=== PATIENT | female | born 1975 | race Caucasian/White ===

== ENCOUNTER → 2024-01-27 01:00 | Outpatient (CLI) | payer BC, SELFPAY ==
--- NOTE | 2024-01-27 08:05 | DI.RAD_ITS ---
Exam(s) XR SHOULDER LT COMPLETE 2+V EXAM: XR SHOULDER LT COMPLETE 2+V CLINICAL HISTORY: LT SHOULDER PAIN, M25.512. TECHNIQUE: 2D digital imaging was performed of the left shoulder. Six images were obtained. AP, Gr ashey, Y-view and axillary views were obtained. COMPARISON: No exams were available for comparison FINDINGS: BONES: No acute fracture is present. No bony destructive lesion is seen. JOINTS: No dislocation present. There are mild degenerative changes seen at the acromioclavicular homero nt. The glenohumeral joint is well maintained. SOFT TISSUE: The visualized lung webb are clear. IMPRESSION: Mild degenerative changes of the AC joint. DATA REPOSITORY: RADIATION DOSE DELIVERED:
== END ==
PROVIDERS: PCP Nurse Practitioner; Visit Provider Nurse Practitioner
DX: M25.512 Pain in left shoulder (principal); M19.012 Primary osteoarthritis, left shoulder
CPT/HCPCS: 73030

== ENCOUNTER → 2024-03-27 00:26 | Outpatient (CLI) | payer BC, SELFPAY ==
--- NOTE | 2024-03-27 06:30 | DI.MRI_ITS ---
Exam(s) MR UPPER JOINT LT WO EXAM: MR UPPER JOINT LT WO CLINICAL HISTORY: ? SLAP TEAR,adhesive capsulitis,m75.02,s43.439a. TECHNIQUE: Multiplanar multisequence MRI was performed. COMPARISON: CR XR SHOULDER LT COMPLETE 2+V from 01/27/2024 FINDINGS: BONES: There is no fracture or contusion pattern. JOINTS: Very mild degenerative changes are seen at the acromioclavicular joint. The glenohumeral homero nt is normal. No significant joint effusion is seen. TENDONS: Supraspinatus: There is intermediate signal and thickening of the supraspinatus tendon consistent wit h tendinosis. There is a focus of hyperintense signal seen in the supraspinatus tendon at its insert ion site (image 11 on the T2 fat suppressed coronal images). This may represent a small intrasubstan ce tear. Infraspinatus: Unremarkable. Subscapularis: Unremarkable. Teres Minor: Unremarkable. Biceps and [place]: Unremarkable. MUSCLES: Unremarkable. GLENOID LABRUM: There is mild blunting of the labrum posteriorly (image 13 on the T2 fat-suppressed c oronal images). This may represent a degeneration or tear. SOFT TISSUES: Unremarkable. LIGAMENTS: Unremarkable. OTHER: Subacromial and subdeltoid bursae are unremarkable. IMPRESSION: 1. Tendinosis of the supraspinatus tendon. Focus of hyperintense signal which may represent intrasub stance small tear. 2. Blunting of the labrum posteriorly which may represent degeneration or tear. 3. Mild degenerative changes seen at the acromioclavicular joint. DATA REPOSITORY:
== END ==
PROVIDERS: PCP Nurse Practitioner; Visit Provider Student in an Organized Health Care Education/Training Program
DX: M75.02 Adhesive capsulitis of left shoulder (principal)
CPT/HCPCS: 73221

== ENCOUNTER 2024-05-17 11:57 | Day surgery (SDC) | payer BC, SELFPAY ==
[2024-05-17] VITALS (30 sets, daily range): BP systolic 121–181; BP diastolic 63–129; PULSE 69–99; RESP 14–26; TEMP 36–37.2; O2SAT 93–100; BMI 34.4
--- NOTE | 2024-05-17 07:27 | PDOC.DSDIS_ITS ---
Date of service: 05/17/24 Time of Service: 16:00 Discharge Plan Disposition Patient Disposition: Home Condition: Stable Discharge Details Attending Provider: Jc Rosario Primary Care Provider: GEORGE CASTILLO Home Meds and New Rx's Prescriptions: New naproxen 250 mg tablet 250 - 500 mg PO BID PRN (Reason: Moderate pain) Qty: 40 0RF tramadol 50 mg tablet 50 mg PO Q8H PRN (Reason: severe pain (scale score 7-10)) Qty: 18 0RF Continued estradiol [Estrace] 1 mg tablet 1 mg PO DAILY Rx Instructions: off 1 week; repeat cycle loratadine [Claritin] 10 mg tablet 10 mg PO DAILY PRN Discharge Instructions Additional Instructions: Surgery: Left shoulder manipulation under anesthesia Activity: Encourage increasing range of motion. Perform daily stretching exercises. Resume physical therapy tomorrow. Prescriptions: Naproxen 250 mg take 1-2 every 12 hours with a meal as needed for moderate pain Tramadol 50 mg take 1 every 8 hours as needed for severe pain You may use [id number]-atugtth Tylenol (acetaminophen) as needed for mild pain. These pain medications may be taken all at once or in different combinations as needed. Also, recommend Colace (docusate) as a stool softener as surgery and pain medicine cause constipation. You may try [id number]-[id number] diphenhydramine (Benadryl) 25-50 mg nightly as a sleep aid Dressings: None Follow-up: 10-[address] Rosario You may take off the leg compression stockings this evening at home. You may also leave them on a few days longer if you have a history of leg swelling or edema. Let us know right away if you develop any redness, drainage, fevers, chest pain, or trouble breathing. Do not drink alcohol or drive for at least 24 hours after anesthesia. Please call the office during business hours with any questions or concerns. Referrals: Jc Rosario MD [ [facility] STAFF PHYSICIAN] - 06/05/24 2:00 pm Discharge Orders Discharge Orders: Discharge Order (Routine); Ordered 05/17/24 Ordered By: Todd Salmon DS: Diagnosis Discharge Diagnosis (1) Adhesive capsulitis of left shoulder: Status: Acute
--- NOTE | 2024-05-17 12:46 | ANES.PREOP_ITS ---
General Info Date of Service Date Performed: 05/17/24 Height: 5 ft 2 in Weight: 85.3 kg Body Mass Index (BMI): 34.4 Surgical Procedure: Operation Date: 05/17/24 14:40 Proposed Procedure Side Surgeon p Shoulder Manipulation Left Jc Rosario MD Meds Allergies and Home Medications Allergies Allergy/AdvReac Type Severity Reaction Status Date / Time Sulfa (Sulfonamide Allergy Intermediate Total body Verified 05/16/24 09:16 Antibiotics) hives acetaminophen (From Percocet) AdvReac Mild Hives Verified 05/16/24 09:16 oxycodone (From Percocet) AdvReac Mild Hives Verified 05/16/24 09:16 Environmental Allergies Allergy Intermediate Stuffy Uncoded 05/16/24 09:16 nose, watery itchy eyes Home Medication ?Medication ?Instructions ?Recorded estradiol 1 mg tablet (Estrace) 1 mg PO DAILY 02/08/24 loratadine 10 mg tablet (Claritin) 10 mg PO DAILY PRN 02/08/24 Current Visit Medications: Current Medications Generic Name Dose Route Start Last Admin Trade Name Freq PRN Reason Stop Dose Admin Ringer's Solution 1,000 mls @ 30 mls/hr 05/17/24 06:00 IV 05/17/24 23:59 INFUSION [facility] IV Miscellaneous Supplies 1 each 05/17/24 06:00 Iv Access IV 05/17/24 23:59 DIRECTED MARY BETH Oxycodone HCl 0 mg 05/17/24 07:26 Oxycodone 5 Mg Tab PO 06/16/24 07:25 Q3H PRN PRN Pain Sodium Chloride 0 ml 05/17/24 06:00 Normal Saline Flush 10 Ml Syr IV 05/17/24 23:59 PRN PRN Sodium Chloride 0 ml 05/17/24 06:00 Normal Saline 10 Ml Vial IJ 05/17/24 23:59 DIRECTED PRN Sterile Water 0 ml 05/17/24 06:00 Water,Injection,Sterile 10 Ml Vial IJ 05/17/24 23:59 DIRECTED PRN PFSH Active Problems Active Problems: Problem Status Onset Code Adhesive capsulitis of left shoulder Acute M75.02 SLAP tear of shoulder Acute S43.439A Social phobia Acute F40.10 Intermittent asthma Acute J45.20 Anxiety disorder Acute F41.9 Medical History Medical History Vitamin D deficiency Plantar fasciitis Rosacea (07/18/14) Surgical History Surgical History Hx of cholecystectomy DOS 2000 History of partial hysterectomy DOS 01/09 d/t endometriosis History of exploratory laparotomy 1999 Tobacco Smoking/Tobacco Use Status: Never Alcohol Alcohol Intake: current Alcohol intake frequency: a few times a month Substance Use Substance use: Never Substance use type: does not use Vital Signs and Lab Results Vital Signs Most Recent Vital Signs in EMR: Most Recent Vital Signs Temp Pulse Resp BP Pulse Ox 36.4 C L 74 16 140/73 100 05/17/24 12:00 05/17/24 12:00 05/17/24 12:00 05/17/24 12:00 05/17/24 12:00 Lab Results Blood Type / Crossmatch: No Data to Display Complete Blood Count: No Data to Display Complete Metabolic Panel: 2 No Data to Display Liver Function Panel: No Data to Display Coagulation Panel: No Data to Display Cardiac Panel: No Data to Display Arterial Blood Gas: No Data to Display Venous Blood Gas: No Data to Display Pancreas Panel: No Data to Display Thyroid Panel: No Data to Display Infectious Disease: No Data to Display Blood Cultures: No Data to Display Toxicology Panel: No Data to Display Panel: No Data to Display Anesthesia Assessment and Plan Anesthesia History Personal History: No History of Anesthesia Complications Family History: No Family History of Anesthesia Complications Exercise Tolerance Exercise Tolerance: Metabolic Equivalents>4 Cardiac & Pulmonary Exam Cardiac Exam: Normal S1/S2 Heart Sounds Pulmonary Exam: Clear Bilateral Breath Sounds Implantable Cardiac Device Does patient have a Pacemaker or an ICD?: No Airway Exam Known Difficult Airway: No Mallampati Class: 3 Mouth Opening: Narrow (< 3cm) Thyromental Distance: Greater than 3 cm Neck Range of Motion: Full ROM Neck Circumference: Normal Teeth Condition: Normal Dentition ASA Classification ASA Score: ASA 2 Emergency Case?: No NPO Status NPO Status: NPO Clears >2 hours, Solids >8 hours Status Status: Not Relevant due to Medical History Anesthesia Plan Resuscitation Status: Full Code Anesthesia Technique: General Anesthesia Airway Planned: Natural Airway Pain Management: Surgeon and patient request nerve block Monitors Used: Standard Monitors Preoperative Comments:: 49 yo female for shoulder manipulation. Sig PMHx: asthma (hasn't used an inhaler in a long time), anxiety. Denies major.
[2024-05-17] MEDS: Lactated Ringers 1,000 ML 30 ML IV (13:50)
--- NOTE | 2024-05-17 14:06 | ANES.NERVE_ITS ---
Nerve Block Single Injection Procedure Date and Time Date Performed: 05/17/24 Procedure Start: 13:28 Location Where Procedure Performed Procedure Location: Day Surgery Unit Reason Performed: Postoperative Analgesia Requesting Provider: Jc Rosario Timeout Performed Timeout Performed: Yes Monitoring Used ECG, Blood Pressure and SpO2 Sterility Sterility: Hand Hygiene, Surgical Cap, Surgical Mask, Sterile Gloves, Sterile Drape/Sheet and Chlorhexidine Sedation Given During Procedure Sedation Given (Indicate Dose Given): Versed IV Dose:: 2 mg and Other: Medication/Route/Dose:: Toradol 15 mg IV for caffeine headache Patient Mental Status Patient Mental Status: Sedate with meaningful communication Nerve Block 1st Nerve Block: Laterality: Left Block Type: Interscalene Ultrasound Image Saved?: Yes Needle / Catheter Used: 100mm SonoPlex II Local Anesthetic Bolus (Indicate Dose Given): Lidocaine used for local infiltration of skin, Injected in 3-5ml increments after negative blood as piration, Bupivacaine 0.25% Dose:: 10 ml and Exparel Dose:: 10 ml Additives (Indicate Dose Given): None Ultrasound: Sterile probe cover and gel used Nerve Stimulator: Supplement to Ultrasound use and No twitch or parasthesia noted < 0.5 mA Paresthesia: None Procedure Tolerated: No Complications and Patient tolerated well Procedure Outcome: Successful Performed By: Alecia Onofre
[2024-05-17] MEDS: fentaNYL 100 MCG/2 ML VIAL IVP ×2 (15:22→15:29)
[2024-05-17] MEDS: LORazepam 2 MG/ML VIAL 0.5 MG IVP (15:26)
--- NOTE | 2024-05-17 15:34 | ROE_ITS ---
Date of service: 05/17/24 Time of Service: 15:00 Operative Note Operative Note DATE OF PROCEDURE: 05/17/24 PRE-OP DIAGNOSIS: Left shoulder stiffness PROCEDURE: Left shoulder manipulation under anesthesia, CPT #40449 SURGEON: Jc Rosario ANESTHESIA TYPE: General LMA/ETT and Primary Nerve Block Refer to Anesthesia Record ESTIMATED BLOOD LOSS: 0 COMPLICATIONS: None Patient was transported to: same day Patient's condition: stable Indications: Please see complete medical record for details. Findings: Excellent release of adhesions, no instability Procedure Description: In the operating room, general anesthesia was induced. The patient was positioned supine on the stretcher. Preoperative antibiotics were omitted. The correct patient, procedure, and side of the procedure were all verified prior to beginning. The Left shoulder was examined with range of motion about 90 degrees forward e levation and 15 degrees external rotation. Internal rotation at about 90 degrees 45 degrees, abduction about 90 degrees. These endpoints had firm, stiff feel. A short lever arm and gradual to steady gentle pressure was used to perform the manipulation alternating between external rotation at the side, forward elevation, and abduction with internal and external rotation. Deliberately gradually and carefully excellent releases were felt in forward elevation and guided into external rotation. Less release happened in abduction and internal rotation. Range of motion was then tested and full. All endpoints were gently exaggerated. The shoulder joint remained stable. While the patient remained under anesthesia, all directions were stretched and repeated numerous times. The patient awoke from anesthesia without complication and was transferred to the recovery room in a stable condition.
[2024-05-17] MEDS: ACETAMINOPHEN 1,000 MG/100 ML BTL 400 MG IVPB (15:38)
--- NOTE | 2024-05-17 15:40 | W.ANESNERVE ---
Nerve Block Single Injection Procedure Date and Time Date Performed: 05/17/24 Procedure Start: 13:30 Location Where Procedure Performed Procedure Location: PACU Reason Performed: Acute Pain Management (severe shoulder pain after shoulder manipulation. ) Pain Diagnosis: Shoulder Pain Requesting Provider: Fran Lloyd Timeout Performed Timeout Performed: Yes Monitoring Used ECG, Blood Pressure and SpO2 Sterility Sterility: Hand Hygiene, Surgical Cap, Surgical Mask, Sterile Gloves and Chlorhexidine Sedation Given During Procedure Sedation Given (Indicate Dose Given): No Sedation given Patient Mental Status Patient Mental Status: Sedate with meaningful communication Nerve Block 1st Nerve Block: Laterality: Left Block Type: Interscalene Ultrasound Image Saved?: Yes Needle / Catheter Used: 100mm SonoPlex II Local Anesthetic Bolus (Indicate Dose Given): Lidocaine used for local infiltration of skin, Injected in 3-5ml increments after negative blood aspiration and Bupivacaine 0.5% Dose:: 10 mL Additives (Indicate Dose Given): None Ultrasound: Sterile probe cover and gel used Nerve Stimulator: Supplement to Ultrasound use and No twitch or parasthesia noted < 0.5 mA Paresthesia: None Procedure Tolerated: No Complications Procedure Outcome: Successful Procedure Comment: On waking from anes pt writhing in pain. complaining of 10/10 shoulder pain. extremely uncomfortable. Discussion with pt about pain and repeating of the block, pt is in agreement with repeat. Performed By: Fran Lloyd
--- NOTE | 2024-05-17 16:23 | W.ANESPOSTOP ---
Postoperative Evaluation Date, Time and Location Date Performed: 05/17/24 Time Performed: 16:23 Patient Location: PACU Vital Signs Most Recent Imported Vital Signs: Most Recent Vital Signs Temp Pulse Resp BP Pulse Ox 36 C L 78 16 129/77 94 05/17/24 16:09 05/17/24 16:09 05/17/24 16:09 05/17/24 16:09 05/17/24 16:09 Pain Score Most Recent Pain Score: Most Recent Pain Score Pain Level 2 05/17/24 16:09 Assessment Mental Status: Awake (Alert & Oriented to Patient Baseline) Airway and Respiratory Function: Patent airway with normal (patient baseline) respiratory exam Cardiovascular Function: Hemodynamically Stable Hydration Status: Adequately Hydrated Nausea & Vomiting: No Nausea or Vomiting Pain: Pain is tolerable per patient Peripheral Nerve Block: Regional nerve block not resolved at time of post operative discharge
== END 2024-05-17 17:09 | disposition home or self-care (01) ==
LOC: SUR 11:58
PROVIDERS: PCP Nurse Practitioner; Visit Provider Student in an Organized Health Care Education/Training Program
PROC: (CPT 23700; principal; 2024-05-17 14:30)
DX: M75.02 Adhesive capsulitis of left shoulder (principal)
CPT/HCPCS: 23700; 76942; C9290; J0131; J0665; J1885; J2001; J2060; J2250; J2405; J2704; J3010

== ENCOUNTER 2025-04-26 09:25 | Outpatient (CLI) | payer BC, SELFPAY ==
[2025-04-26 08:31] LABS: Anion Gap 7.3 mmol/L (3-11); BUN 16 mg/dL (7-18); CO2 28.7 mmol/L (21.0-32.0); CREATININE 0.6 mg/dL (0.55-1.02); Calcium 9.1 mg/dL (8.5-10.1); Calculated LDL 166 mg/dL (<100); Chloride 104 mmol/L (98-107); Cholesterol 245 mg/dL (<200); Estimated GFR 108.61 (mL/min/1.73m2); Glucose 126 mg/dL (74-106); HDL Cholesterol 64 mg/dL (>or=50); Sodium 140 mmol/L (136-145); Triglyceride 79 mg/dL (<150)
== END 2025-04-26 09:26 | disposition home or self-care (01) ==
LOC: LBO 09:26
PROVIDERS: PCP Nurse Practitioner; Visit Provider Nurse Practitioner Family
DX: Z13.1 Encounter for screening for diabetes mellitus (principal); Z13.220 Encounter for screening for lipoid disorders
CPT/HCPCS: 36415; 80048; 80061